=== PATIENT | male | born 1935 ===

== ENCOUNTER 2018-01-20 04:11 | Inpatient (IN) | payer MEDICARE, BC ==
[2018-01-20] VITALS (17 sets, daily range): BP systolic 118–168; BP diastolic 22–96; BMI 28.2
--- NOTE | ~2018-01-20 | CN ---
PATIENT NAME:BETTE CANTU MEDICAL RECORD: [id number] : 39 LOCATION:[id number] ADMIT DATE: 01/20/18 ACCOUNT: [id number] CONSULTING PHYSICIAN: VENITA DIAZ MD REFERRING PHYSICIAN: KYM ROCHA MD DATE OF CONSULTATION: 01/20/2018 ADDENDUM CHIEF COMPLAINT: Bleeding. HISTORY OF PRESENT ILLNESS: The patient is unable to provide me with any history. He is also unable to provide me with a review of systems. This is a patient of Dr. Mark. The patient was on hospice for Parkinson's disease. He developed bright red blood per rectum. Reportedly, there was no unassigned toggler at [facility], so the patient was transferred here. The patient has been on aspirin and Plavix. The patient underwent a nuclear medicine bleeding study. I have personally reviewed the report. It reveals radiotracer accumulating in the midline pelvis consistent with an active GI hemorrhage, likely at the rectosigmoid junction. During the colonoscopy, we did not identify an area of bleeding. This was in an unprepped colon, however. The patient is unable to provide me with any aggravating or alleviating factors. He is currently nonverbal. This is the typed portion of the consultation note. Please see the chart for the past medical and surgical history, review of systems, social history, allergies as well as current medications and family history. REVIEW OF SYSTEMS: Unobtainable due to the patient's sedated state. Also, he is nonverbal currently with his Parkinson disease. PHYSICAL EXAMINATION: GENERAL: The patient does appear acutely ill. Also appears chronically ill. VITAL SIGNS: Reviewed. HEENT: Ears; external ears appear normal. Eyes; extraocular movements are intact. NECK: Trachea is midline. CHEST: No intercostal retractions. PULMONARY: Nonlabored, no stridor. ABDOMEN: No peritonitis with movement. EXTREMITIES: There is peripheral pallor. INTEGUMENT: There is an intertriginous rash. PSYCHIATRIC: Flat affect. NEUROLOGIC: Markedly abnormal. The patient has a resting tremor. BACK: Mild thoracic kyphosis. IMPRESSION: Gastrointestinal bleeding, likely lower gastrointestinal bleeding. PLAN: The patient appears to have stopped bleeding at this time. I would recommend that we continue to hold his aspirin and Plavix. TRANSINT:[id number] Voice Confirmation ID: [id number] DOCUMENT ID: [id number] CONSULT REPORT [id number] BETTE CANTU, VENITA CULLEN at 1019 CC: [id number] DICTATION DATE: 01/20/181732 CARTRIDGE FILLER: 01/20/18 1839 DIS [place] 01/23/18 [place] [id number] [place] [id number]
--- NOTE | ~2018-01-20 | EC ---
PATIENT:BETTE CANTU DATE OF SERVICE: 01/20/18 SEX: M MEDICAL RECORD: [id number] DATE OF : 39 LOCATION:[facility] AGE OF PATIENT: 83 ADMISSION DATE: 01/20/18 REFERRING PHYSICIAN: INTERPRETING PHYSICIAN: RUPAL DANGELO MD ECHOCARDIOGRAM REPORT ECHO CHARGES 4 ECHO COMPLETE CLINICAL DIAGNOSIS: CHF ECHOCARDIOGRAPHIC MEASUREMENTS (adult normal given) AC root (d.<3.7cm) 3.5 cm LV Septum d (<1.2 cm> 1.4 cm Valve Excursion 1.2 cm LV Septum (systole) 1.8 cm Left Atria (s.<4.0cm> 3.9 cm LVPW d(<1.2cm) 1.3 cm RV (d.<2.3cm) 2.5 cm LVPW (sytole) 2.2 cm LV diastole(<5.6CM) 5.6 cm MV E-F(>70mm/sec) cm LV systole 3.3 cm LVOT Diameter 1.6 cm MV exc.(>10mm) cm Est.ejection fraction (50-75%) % Pericardial Effusion N DOPPLER: LVIT cm/sec A 119 cm/sec E 76.0 cm/sec LA cm/sec RVSP 45.0 mmHg LVOT 85.0 cm/sec AOP1/2T m/s Asc. Ao 200 cm/sec RVOT 82.0 cm/sec RA cm/sec PA 96.0 cm/sec AV Gradient Peak 16.0 mmHg AV Mean 8.7 mmHg AV Area 1.0 cm MV Gradient Peak 5.7 mmHg MV Mean 1.7 mmHg MV Area cm COMMENTS: Workers Compensation Claims Specialist: Rachel PHILLIPSOE Transactional Attorney: Leslie Dangelo TAPE# PACS DATE OF SERVICE: 01/21/2018 PROCEDURE: Transthoracic echocardiogram. INDICATION: The patient had a small non-Q-wave myocardial infarction. FINDINGS: 1. Left ventricle has left ventricular hypertrophy with inflow characteristics consistent with diastolic dysfunction versus elevation of the left ventricular end-diastolic pressure. There are regional wall motion abnormalities. There is ECHOCARDIOGRAM REPORT [id number] BETTE CANTU anterior septal hypokinesis with a normal wall motion in other segments. Overall ejection fraction 40% to 45%. 2. The aortic valve has mild aortic insufficiency. No evidence of aortic stenosis. 3. The mitral valve has moderate mitral regurgitation. 4. The tricuspid valve has moderate tricuspid regurgitation. The RVSP is 45 mmHg. 5. The pericardium is normal. 6. The right ventricle and right atrium are difficult to visualize, but appeared to be normal size. 7. The pulmonic valve has trace pulmonic insufficiency. CONCLUSION: The patient has evidence of hypertensive heart disease as well as regional wall motion abnormalities consistent with ischemic cardiomyopathy with ejection fraction of 40% to 45%. TRANSINT:[id number] Voice Confirmation ID: [id number] DOCUMENT ID: [id number] 01/24/2018 Edited to correct date of service, dmm. RUPAL DANGELO MD at 0807 CC: [id number] DICTATION DATE: 01/22/18 0735 MARKETING OPERATIONS SPECIALIST: 01/22/18 0954 DIS IN 01/23/18 [facility] [address] [place] [address]
[2018-01-20 08:28] LABS: HEMATOCRIT 37.7 % (42.0-54.0); HEMOGLOBIN 12.6 g/dL (13.5-17.5)
[2018-01-20 14:00] LABS: HEMATOCRIT 37.2 % (42.0-54.0); HEMOGLOBIN 12.3 g/dL (13.5-17.5)
[2018-01-20 18:16] LABS: HEMATOCRIT 36.9 % (42.0-54.0); HEMOGLOBIN 12.2 g/dL (13.5-17.5)
[2018-01-20 18:36] LABS: ANION GAP 11.3 mmol/L (8-16); CALCIUM 8.2 mg/dL (8.5-10.1); CARBON DIOXIDE 28.1 mmol/L (21.0-32.0); CREATININE - SERUM 1.4 mg/dL (0.6-1.3); POTASSIUM - SERUM 3.4 mmol/L (3.5-5.1)
[2018-01-20 23:55] LABS: HEMATOCRIT 33.8 % (42.0-54.0); HEMOGLOBIN 11.3 g/dL (13.5-17.5)
[2018-01-21] VITALS (23 sets, daily range): BP systolic 110–159; BP diastolic 47–105; BMI 28.2
[2018-01-21 03:31] LABS: BASOPHILS 0.2 % (0-2); EOSINOPHILS 1.3 % (0-7); HEMATOCRIT 33.9 % (42.0-54.0); HEMOGLOBIN 11.1 g/dL (13.5-17.5); IMMATURE GRANULOCYTES 0.4 % (0-5); LYMPHOCYTES 34.7 % (15-50); MCH 30.2 pg (26.0-34.0); MCHC 32.7 g/dL (31.0-37.0); MCV 92.1 fL (80.0-100.0); MEAN PLATELET VOLUME 10.6 fL (7.4-10.4); MONOCYTES 12.1 % (2-11); NEUTROPHILS 51.3 % (40-80); PLATELET COUNT 147 10x3/uL (130-400); RBC 3.68 10x6/uL (4.20-6.10); RDW 16.5 % (11.5-14.5); WBC 5.3 10x3/uL (4.8-10.8)
[2018-01-21 03:42] LABS: INR 1.25 (0.85-1.17); PROTIME 15.3 SECONDS (11.6-15.0)
[2018-01-21 03:44] LABS: ANION GAP 11.9 mmol/L (8-16); CALCIUM 8.1 mg/dL (8.5-10.1); CARBON DIOXIDE 26.4 mmol/L (21.0-32.0); CREATININE - SERUM 1.4 mg/dL (0.6-1.3); POTASSIUM - SERUM 3.3 mmol/L (3.5-5.1)
[2018-01-21] MEDS ORDERED: AMANTADINE100 M1 PO (09:37)
[2018-01-21] MEDS ORDERED: ASPIRIN EC325 M1 PO (09:38)
[2018-01-21] MEDS ORDERED: LIPITOR10 MG PO (09:39)
[2018-01-21] MEDS ORDERED: SINEMET 25-1001 EACH PO (09:40)
[2018-01-21] MEDS ORDERED: ASTEPRO30 M1 NASAL (09:40)
[2018-01-21] MEDS ORDERED: PLAVIX75 MG PO (09:41)
[2018-01-21] MEDS ORDERED: LOMOTIL TABLET1 TAB PO (09:42)
[2018-01-21] MEDS ORDERED: FUROSEMIDE40 MG PO (09:43)
[2018-01-21] MEDS ORDERED: FOLBIC RF TABL1 EACH PO (09:43)
[2018-01-21] MEDS ORDERED: ISOSORBIDE MONO30 M1 PO ×2 (09:44→21:48)
[2018-01-21] MEDS ORDERED: NEURONTIN 300300 MG PO (09:44)
[2018-01-21] MEDS ORDERED: NITROSTAT0.4 MG SL (09:45)
[2018-01-21] MEDS ORDERED: ZOFRAN4 MG PO (09:46)
[2018-01-21] MEDS ORDERED: CALMOSEPTINE OI71 GM TOPICAL (09:46)
[2018-01-21] MEDS ORDERED: K-DUR20 MEQ PO (09:47)
[2018-01-21] MEDS ORDERED: PROPAFENONE HC150 MG PO (09:48)
[2018-01-21] MEDS ORDERED: ARTIFICIAL TEAR15 ML EACH EYE (10:01)
[2018-01-21 17:14] LABS: CKMB 17.8 U/L (0.0-3.6); CREATINE KINASE 264 UL (21-232)
[2018-01-21 17:17] LABS: TROPONIN-I 7.897 ng/mL (0.000-0.060)
[2018-01-21 22:43] LABS: CKMB 8.9 U/L (0.0-3.6); CREATINE KINASE 217 UL (21-232)
[2018-01-21 22:45] LABS: TROPONIN-I 7.479 ng/mL (0.000-0.060)
[2018-01-22] VITALS (10 sets, daily range): BP systolic 98–122; BP diastolic 42–59
[2018-01-22 04:03] LABS: BASOPHILS 0.2 % (0-2); EOSINOPHILS 0.3 % (0-7); HEMATOCRIT 29.9 % (42.0-54.0); HEMOGLOBIN 9.8 g/dL (13.5-17.5); IMMATURE GRANULOCYTES 0.3 % (0-5); LYMPHOCYTES 25.7 % (15-50); MCH 30.3 pg (26.0-34.0); MCHC 32.8 g/dL (31.0-37.0); MCV 92.6 fL (80.0-100.0); MEAN PLATELET VOLUME 10.7 fL (7.4-10.4); NEUTROPHILS 67.5 % (40-80); PLATELET COUNT 142 10x3/uL (130-400); RBC 3.23 10x6/uL (4.20-6.10); RDW 16.1 % (11.5-14.5)
[2018-01-22 04:15] LABS: WBC 6.7 10x3/uL (4.8-10.8)
[2018-01-22 04:32] LABS: CALC OSMOLALITY 287 mosm/kg (275-300); CALCIUM 7.7 mg/dL (8.5-10.1); CARBON DIOXIDE 26.1 mmol/L (21.0-32.0); CHLORIDE - SERUM 108 mmol/L (98-107); CKMB 6.2 U/L (0.0-3.6); CREATINE KINASE 193 UL (21-232); CREATININE - SERUM 1.4 mg/dL (0.6-1.3); GLUCOSE 106 mg/dL (74-106); POTASSIUM - SERUM 3.4 mmol/L (3.5-5.1); SODIUM 143 mmol/L (136-145); UREA NITROGEN 20 mg/dL (7-18); eGFR NON AFRICAN AMERICAN 52 mL/min (90-120)
[2018-01-22 04:34] LABS: TROPONIN-I 6.779 ng/mL (0.000-0.060)
[2018-01-23 01:38] VITALS: BP 108/64
[2018-01-23 05:55] VITALS: BP 119/62
[2018-01-23 09:18] VITALS: BP 117/53
[2018-01-23 13:06] VITALS: BP 110/52
[2018-01-23 13:12] LABS: BASOPHILS 0 % (0-2); EOSINOPHILS 2.4 % (0-7); HEMATOCRIT 28.6 % (42.0-54.0); HEMOGLOBIN 9.2 g/dL (13.5-17.5); LYMPHOCYTES 29.4 % (15-50); MCH 30.5 pg (26.0-34.0); MCHC 32.2 g/dL (31.0-37.0); MEAN PLATELET VOLUME 11.5 fL (7.4-10.4); MONOCYTES 8.7 % (2-11); NEUTROPHILS 59.5 % (40-80); PLATELET COUNT 123 10x3/uL (130-400); RBC 3.02 10x6/uL (4.20-6.10); WBC 5.1 10x3/uL (4.8-10.8)
[2018-01-23 13:17] LABS: MCV 94.7 fL (80.0-100.0)
[2018-01-23 13:26] LABS: ANION GAP 10.8 mmol/L (8-16); CALCIUM 7.4 mg/dL (8.5-10.1); CARBON DIOXIDE 27.4 mmol/L (21.0-32.0); CREATININE - SERUM 1.2 mg/dL (0.6-1.3); POTASSIUM - SERUM 3.2 mmol/L (3.5-5.1)
[2018-01-23 16:35] VITALS: BP 103/61
== END 2018-01-23 17:19 | disposition home health service (06) | DRG 377 ==
LOC: D.ICU 04:11 → D.MS 04:33 → D.ICU 04:33 → D.MS 01-22 04:37
PROVIDERS: Emergency Medicine; Internal Medicine Cardiovascular Disease; Internal Medicine Gastroenterology
PROC: 0DJD8ZZ Inspection of Lower Intestinal Tract, Via Natural or Artificial Opening Endoscopic (ICD-10-PCS; principal; 2018-01-22)
DX: K57.91 Diverticulosis of intestine, part unspecified, without perforation or abscess with bleeding (principal); I21.4 Non-ST elevation (NSTEMI) myocardial infarction; S72.002A Fracture of unspecified part of neck of left femur, initial encounter for closed fracture; D62 Acute posthemorrhagic anemia; I50.22 Chronic systolic (congestive) heart failure; K64.8 Other hemorrhoids; E87.6 Hypokalemia; I11.0 Hypertensive heart disease with heart failure; X58.XXXA Exposure to other specified factors, initial encounter